=== PATIENT | female | born 1950 | race Caucasian/White ===

== ENCOUNTER 2024-01-18 17:21 | Emergency (ER) | payer MEDICARE ==
[~2024-01-18] VITALS: Ht 160 cm; Wt 97.1 kg
[2024-01-18 17:36] VITALS: PULSE 78; RESP 18; TEMP 98.5
[2024-01-18] MEDS: ACETAMINOPHEN 325 MG TAB PO ONE (18:09)
[2024-01-18] MEDS ORDERED: [UNRECOGNIZED DRUG - OTHER] (18:28)
[2024-01-18] MEDS ORDERED: VOLTAREN ARTHRI20 GM (18:28)
[2024-01-18] MEDS ORDERED: GLIMEPIRIDE2 MG PO (18:28)
[2024-01-18] MEDS ORDERED: LEVOTHYROXINE50 MCG PO (18:28)
[2024-01-18] MEDS ORDERED: NITROSTAT0.4 MG SL (18:28)
[2024-01-18] MEDS ORDERED: ATORVASTATIN CA20 MG PO (18:28)
[2024-01-18] MEDS ORDERED: ASPIRIN EC81 MG PO (18:28)
[2024-01-18] MEDS ORDERED: LOSARTAN POTASS50 MG PO (18:28)
[2024-01-18] MEDS ORDERED: METFORMIN HCL500 MG PO (18:28)
[2024-01-18] MEDS ORDERED: VITAMIN D3125 MCG (18:28)
[2024-01-18] MEDS ORDERED: PROBIOTIC & AC1 EACH PO (18:28)
[2024-01-18] MEDS ORDERED: ALPRAZOLAM1 MG PO (18:28)
[2024-01-18] MEDS ORDERED: DICYCLOMINE HCL20 MG PO (18:28)
[2024-01-18] MEDS ORDERED: [UNRECOGNIZED DRUG - OTHER] PO (18:28)
[2024-01-18] MEDS ORDERED: TRULICITY0.75 MG/0. (18:28)
[2024-01-18] MEDS ORDERED: FLONASE ALLERG9.9 ML INH (18:28)
[2024-01-18] MEDS ORDERED: METOPROLOL TART25 MG PO (18:28)
[2024-01-18] MEDS ORDERED: ONDANSETRON ODT4 MG PO (18:28)
[2024-01-18] MEDS ORDERED: MINOCYCLINE HCL50 MG PO (18:28)
[2024-01-18] MEDS ORDERED: SERTRALINE HCL50 MG PO (18:28)
[2024-01-18] MEDS ORDERED: IMITREX100 MG PO (18:28)
[2024-01-18] MEDS ORDERED: PROTONIX20 MG PO (18:28)
[2024-01-18] MEDS ORDERED: MECLIZINE HCL12.5 MG PO (18:28)
[2024-01-18 21:21] VITALS: BP 129/84; PULSE 71; RESP 18; TEMP 98.3; O2SAT 100
== END 2024-01-18 21:15 | disposition home or self-care (01) ==
LOC: FSED 17:35
DX: S80.12XA Contusion of left lower leg, initial encounter (principal); W22.09XA Striking against other stationary object, initial encounter; Y93.01 Activity, walking, marching and hiking; Y92.89 Other specified places as the place of occurrence of the external cause; I10 Essential (primary) hypertension; E11.9 Type 2 diabetes mellitus without complications; E03.9 Hypothyroidism, unspecified; E78.5 Hyperlipidemia, unspecified; I25.10 Atherosclerotic heart disease of native coronary artery without angina pectoris; K21.9 Gastro-esophageal reflux disease without esophagitis; F41.9 Anxiety disorder, unspecified
CPT/HCPCS: 93971; 99283